=== PATIENT | female | born 2000 | race Caucasian/White ===

== ENCOUNTER → 2021-02-09 | Outpatient (CLI) | payer OTHER | END | disposition home or self-care (01) | LOC: SONOGRAMA 10:04 | DX: N60.01 Solitary cyst of right breast (principal); N60.02 Solitary cyst of left breast; R14.2 Eructation; D25.1 Intramural leiomyoma of uterus; N64.59 Other signs and symptoms in breast ==

== ENCOUNTER 2024-09-01 06:24 | Outpatient (CLI) | payer OTHER | END 2024-09-01 06:50 | disposition home or self-care (01) | LOC: RAD 06:24 | PROVIDERS: ATTEND Radiology Diagnostic Radiology | DX: M25.561 Pain in right knee (principal); M79.672 Pain in left foot ==